=== PATIENT | male | born 1990 | race Caucasian/White ===

== ENCOUNTER 2023-10-04 21:18 | Outpatient (CLI) | payer OTHER, SELFPAY | END 2023-10-04 21:19 | disposition home or self-care (01) | LOC: AMB 10-19 08:26 | PROVIDERS: Visit Provider Emergency Medicine Emergency Medical Services | DX: S09.93XA Unspecified injury of face, initial encounter (principal); W01.198A Fall on same level from slipping, tripping and stumbling with subsequent striking against other object, initial encounter; Y93.79 Activity, other specified sports and athletics; Y92.007 Garden or yard of unspecified non-institutional (private) residence as the place of occurrence of the external cause | CPT/HCPCS: A0998 ==